=== PATIENT | male | born 1945 | race Two or more races ===

== ENCOUNTER 2018-05-25 08:10 | Inpatient (IN) | payer OTHER ==
[~2018-05-25] VITALS: Ht 167.6 cm; Wt 74.4 kg
[~2018-05-25 08:10] MED LIST: COUMADIN5 MG PO
[2018-05-25] MEDS ORDERED: COUMADIN5 MG PO (08:22)
[2018-06-03] MEDS ORDERED: LOVENOX80 MG/0.8 SUBCUTANEO (13:16)
[2018-06-03] MEDS ORDERED: COUMADIN5 MG PO (13:16)
[2018-06-03] MEDS ORDERED: FAMOTIDINE20 MG PO (13:16)
[2018-06-03] MEDS ORDERED: PROSCAR5 MG PO (13:16)
[2018-06-03] MEDS ORDERED: Intestinex CAP PO (13:16)
[2018-06-03] MEDS ORDERED: NEURONTIN300 MG PO (13:16)
== END 2018-06-04 16:12 | disposition home or self-care (01) | DRG 330 ==
LOC: ER 08:10 → SEC-K 11:33 → SURH 11:33
PROVIDERS: Colon & Rectal Surgery
PROC: 06H03DZ Insertion of Intraluminal Device into Inferior Vena Cava, Percutaneous Approach (ICD-10-PCS; 2018-05-26)
PROC: 07TC4ZZ Resection of Pelvis Lymphatic, Percutaneous Endoscopic Approach (ICD-10-PCS; 2018-05-27)
PROC: 0DBU4ZZ Excision of Omentum, Percutaneous Endoscopic Approach (ICD-10-PCS; 2018-05-27)
PROC: 0DTF4ZZ Resection of Right Large Intestine, Percutaneous Endoscopic Approach (ICD-10-PCS; principal; 2018-05-27 19:00)
DX: C18.2 Malignant neoplasm of ascending colon (principal); I82.512 Chronic embolism and thrombosis of left femoral vein; I82.522 Chronic embolism and thrombosis of left iliac vein; D50.0 Iron deficiency anemia secondary to blood loss (chronic); Z79.01 Long term (current) use of anticoagulants; K29.00 Acute gastritis without bleeding; N40.0 Benign prostatic hyperplasia without lower urinary tract symptoms

== ENCOUNTER 2018-06-23 19:11 | Emergency (ER) | payer OTHER ==
[~2018-06-23] VITALS: Ht 180.3 cm; Wt 71.2 kg
[~2018-06-23 19:11] MED LIST changes: +FAMOTIDINE20 MG PO; +Intestinex CAP PO; +LOVENOX80 MG/0.8 SUBCUTANEO; +NEURONTIN300 MG PO; +PROSCAR5 MG PO
[2018-06-23] MEDS ORDERED: COUMADIN5 MG (19:31)
[2018-06-23] MEDS ORDERED: ACID CONTROLLER20 MG (19:32)
[2018-06-23] MEDS ORDERED: PERCOCET 5-3251 EACH (19:33)
[2018-06-23] MEDS ORDERED: ABATINEX680 MG (19:33)
[2018-06-24] MEDS ORDERED: KRISTALOSE20 GM PO (12:32)
[2018-06-24] MEDS ORDERED: PROTONIX40 MG PO (12:32)
[2018-06-24] MEDS ORDERED: AMOX-CLAV 875-1 EACH PO (12:32)
[2018-06-24] MEDS ORDERED: INTESTINEX680 M1 PO (12:32)
== END 2018-06-24 13:46 | disposition home or self-care (01) ==
LOC: ER 19:11
DX: L03.311 Cellulitis of abdominal wall (principal); K62.5 Hemorrhage of anus and rectum; T81.4XXS Infection following a procedure, sequela; Y83.8 Other surgical procedures as the cause of abnormal reaction of the patient, or of later complication, without mention of misadventure at the time of the procedure

== ENCOUNTER 2019-06-18 09:41 | Day surgery (SDC) | payer OTHER ==
[~2019-06-18 09:41] MED LIST changes: +ABATINEX680 MG; +ACID CONTROLLER20 MG; +AMOX-CLAV 875-1 EACH PO; +COUMADIN5 MG; +INTESTINEX680 M1 PO; +KRISTALOSE20 GM PO; +PERCOCET 5-3251 EACH; +PROTONIX40 MG PO
== END 2019-06-18 17:35 | disposition home or self-care (01) ==
LOC: AMB-ENDOS 09:41
DX: K63.5 Polyp of colon (principal); K64.1 Second degree hemorrhoids